=== PATIENT | female | born 1985 | race African-American/Black ===

== ENCOUNTER 2024-06-28 10:27 | Emergency (ER) | payer BC, SELFPAY ==
[2024-06-28 10:28] VITALS: BP 147/87; PULSE 85; RESP 16; TEMP 36.1; O2SAT 100
--- NOTE | 2024-06-28 10:30 | ED_ITS ---
HPI - Nausea/Vomiting/Diarrhea General Chief complaint: Nausea/Vomiting/Diarrhea Stated complaint: exposed to norovirus Time Seen by Provider: 06/28/24 10:29 Source: patient and RN notes reviewed Mode of arrival: EMS Limitations: no limitations History of Present Illness HPI Narrative: Patient presents with complaint of nausea and vomiting for the past 4-5 days. She works as a VEHICLE INSURANCE AGENT in a facility where she was told that she was exposed to norovirus. She states that after having a fibroid surgery she was told she may have leaky gut and was prescribed antibiotics but otherwise has no underlying GI issues and does not follow with a spinner concrete pipe. She states that her symptoms were bad enough that she did attempt to smoke marijuana to see if that would help. At baseline she is a daily user of marijuana. She states that initially she had some blood-streaked emesis although this has resolved. Her last bowel movement was today and she has been having diarrhea that is nonbloody.. She is about to start her next menstrual cycle. Denies other vaginal discharge. Denies any dysuria, or urinary urgency or frequency, or hematuria. She has been had subjective fevers and chills. She is also having epigastric abdominal pain. No medications taken at home but EMS did administer IV Zofran she states that this helped. Last oral intake was Sunday. She has been trying to drink protein shakes but unable to keep anything down. She had recently had weight loss preceding this and this caused her lisinopril dosage to change. She states that she has been diaphoretic. She has no appetite. She is thirsty. Related Data Allergies Allergy/AdvReac Type Severity Reaction Status Date / Time Penicillins Allergy Difficulty Verified 06/28/24 10:37 Breathing PMFSH Past Medical History Medical History Fibroid, uterine Surgical History Surgical History History of surgery of uterus for fibroids Social History Social History (Updated 06/28/24 @ 10:43 by Rakel Alejandra MD) Additional living arrangements comments: Resides in [place]; currently in this area on job assignment Occupation/Education: occupation Additional occupation/education comments: VEHICLE INSURANCE AGENT Exam 2 Narrative: GENERAL: Well-appearing, well-nourished, and in no acute distress. Odor of marijuana. HEAD: Normocephalic, atraumatic. EYES: Non injected, non icteric ENT: Nares clear, no rhinorrhea or epistaxis. Tacky mucous membranes. Tongue covered in white film. NECK: Supple. CHEST: Speaking in full sentences. No respiratory distress. HEART: Regular rate and rhythm. . ABDOMEN: Soft, nondistended. No tenderness to palpation. No rigidity or guarding. Not peritoneal. EXTREMITIES: Normal range of motion. No lower extremity edema. SKIN: Warm, dry, no rash. NEURO: No focal deficits. Alert and oriented x3. PSYCH: Normal mood and affect. Course Vital Signs Vital signs: Vital Signs Temperature 97 F L 06/28/24 10:28 Pulse Rate 85 06/28/24 10:28 Respiratory Rate 16 06/28/24 10:28 Blood Pressure 147/87 H 06/28/24 10:28 Pulse Oximetry 100 06/28/24 10:28 Oxygen Delivery Room Air 06/28/24 10:28 Temperature 98.8 F 06/28/24 13:47 Pulse Rate 65 06/28/24 11:07 Respiratory Rate 17 06/28/24 11:07 Blood Pressure 125/73 06/28/24 11:07 Pulse Oximetry 100 06/28/24 11:07 Oxygen Delivery Room Air 06/28/24 10:28 MDM - Nausea/Vomiting/Diarrhea MDM Narrative Medical decision making narrative: Patient presents with nausea, vomiting, and diarrhea. Symptoms for the past 4-5 days. Reportedly exposed to norovirus at work. She is a VEHICLE INSURANCE AGENT. In the emergency department she is afebrile with acceptable vital signs, mild hypertension. Patient notes that she is feeling slightly better after receiving IV Zofran from EMS. IV fluids ordered. Patient is mildly hypokalemic. P.o. supplementation ordered. Magnesium normal. Patient has some microscopic hematuria. She denies any dysuria, urgency, frequency, or gross hematuria. She does state that her menstrual period is due to begin. For this reason, presumption is that this represents started her menstrual cycle rather than infection and will defer antibiotics at this time given otherwise asymptomatic. Viral swab negative. Patient reassessed at 11:40 a.m.. She is sleeping, resting comfortably. She states she can not keep her eyes open and is tired however she states that her nausea is improved at this time. Has not vomited. Negative test. Patient reassessed multiple times and there is prolongation in being able to p.o. challenge given her degree of somnolence. She remains protecting her airway. She was given no opiate or benzodiazepine medication in the emergency department or by EMS. Thus, I do suspect that her fatigue may be driven by her symptoms over the past few days as well as her declared use of marijuana.. She does successfully p.o. challenge. Stable for discharge. Vital signs within normal limits. Advised on rest and supportive care and maintaining hydration. Provided prescription for short course of ondansetron. Differential Diagnosis Differential diagnosis: Likely traveler's diarrhea, food poisoning, gastroenteritis, clostridium difficile infection, drug-induced nausea and vomiting, dehydration and other (Cannabinoid hyperemesis syndrome; pancreatitis; biliary pathology) Lab Data Attestation: I reviewed the patient's lab results. Lab results narrative: CBC grossly unremarkable 06/28/24 10:43 06/28/24 10:43 Labs: Lab Results 06/28/24 06/28/24 06/28/24 Range/Units 10:43 10:56 11:00 WBC 5.3 (4.5-10.0) K/mm3 RBC 4.69 (4.2-5.4) M/mm3 Hgb 13.9 (12.0-15.0) g/dL Hct 43.0 (37.0-47.0) % MCV 91.7 (80-100) fl MCH 29.6 (26-34) pg MCHC 32.3 (32-36) g/dl RDW 15.5 H (11.5-14.5) % Plt Count 282 (150-375) k/mm3 MPV 10.2 (7.4-10.4) fl Immature Gran % (Auto) 0.2 (0-0.5) % Neut % (Auto) 77.6 H (45.5-73.1) % Lymph % (Auto) 18.6 (18.3-44.2) % [place] % (Auto) 2.4 L (2.6-8.5) % Eos % (Auto) 0.4 (0-4.4) % Baso % (Auto) 0.8 (0.2-1.2) % Lymph # (Auto) 0.99 (0.9-3.2) K/mm3 [place] # (Auto) 0.1 (0.1-0.6) K/mm3 Eos # (Auto) 0.0 (0-0.3) K/mm3 Baso # (Auto) 0.0 (0.0-0.1) K/mm3 Abs Immat Gran (auto) 0.01 (0.00-0.031) K/mm3 Absolute Neuts (auto) 4.1 (1.3-6.7) K/mm3 Absolute Nucleated RBC 0.000 (0.0-0.012) K/mm3 Nucleated RBC % 0.0 (0.0-0.2) % Sodium 139 (137-145) mmol/L Potassium 3.3 L (3.4-5.0) mmol/L Chloride 105 (98-107) mmol/L Carbon Dioxide 25 (22-30) mmol/L Anion Gap 9 (4-12) mmol/L BUN 9 (7-17) mg/dL Creatinine 0.84 (0.7-1.0) mg/dL Estim Creat Clear Calc Not Reportable Estimated GFR > 60 (59 - ) Glucose 112 H (65-110) mg/dL Calcium 9.3 (8.4-10.2) mg/dL Magnesium 2.1 (1.6-2.3) mg/dL Total Bilirubin 0.8 (0.2-1.3) mg/dL AST 20 (14-36) U/L ALT 20 (6-35) U/L Alkaline Phosphatase 76 (38-126) U/L Total Protein 8.0 (6.3-8.2) g/dL Albumin 4.5 (3.5-5.1) g/dL Lipase 106 (23-300) U/L Urine Color Dark yellow (Yellow) Urine Appearance Cloudy H (Clear) Urine pH 6.5 (5.0-9.0) Ur Specific [place] 1.027 (1.001-1.035) Urine Protein 2+ H (Negative) mg/dL Urine Glucose (UA) Negative (Negative) mg/dL Urine Ketones 2+ H (Negative) mg/dL Ur Blood (Man) 1+ H (Negative) Urine Nitrate Negative (Negative) Urine Bilirubin Negative (Negative) Urine Urobilinogen 1.0 (<2.0) mg/dL Leukocyte Esterase Rfl Negative (Negative) RYANNE/UL Urine RBC 11-20 H (0-2) /hpf Urine WBC 0-5 (0-3) /hpf Ur Squamous Epith Cells Occasional (Few) /hpf Urine Bacteria None seen /hpf Urine Casts 0-2 POC Urine HCG, Qual Negative (Negative) Influenza A (RT-PCR) Negative (Negative) Influenza B (RT-PCR) Negative (Negative) SARS-CoV-2 RNA (RT-PCR) Negative (Negative) Discharge Plan Discharge Clinical Impression: Gastroenteritis, Hypokalemia Patient Disposition: Home, Self-Care Condition: Stable Instructions: Antibiotic Form, Hypokalemia (ED), Gastroenteritis (ED) Additional Instructions: Rest and maintain your hydration. Your potassium was mildly low. We did supplement it here. You can gently sip water and, if desired, add pedialyte or Gatorade (does not have to be name brand). If you choose to use juice, dilute it as sometimes these contain a lot of sugar. Avoid milk as some viruses can cause a transient intolerance to milk. If and when you do have an appetite, start with bland food (think bananas, rice, applesauce, toast). Follow-up with primary care physician. If you do not have 1 in the area the name of the doctors listed below. Return to the emergency department with any new or worsening symptoms. Oral disintegrating tablets of ondansetron/Zofran have been prescribed if nausea and vomiting occur again. Patient Language: Turkmen Prescriptions: New ondansetron 4 mg tablet,disintegrating 4 mg PO Q8H PRN (Reason: nausea and vomiting) Qty: 7 0RF Follow-up/Referrals: PHYSICIAN NOT ON STAFF,NONSTAFF [Primary Care Provider] - Alfonso Vincent MD [Physician] - (Family practice/primary care physician) Stand Alone Forms: Work/School Release IP Time of Disposition: 13:37
[2024-06-28 10:49] LABS: Basophils Percent Auto 0.8 % (0.2-1.2); Eosinophils Percent Auto 0.4 % (0-4.4); Hemoglobin 13.9 g/dL (12.0-15.0); Immature Granulocyte Absolute 0.01 K/mm3 (0.00-0.031); Immature Granulocyte Percent A 0.2 % (0-0.5); Lymphocytes Absolute Auto 0.99 K/mm3 (0.9-3.2); Lymphocytes Percent Auto 18.6 % (18.3-44.2); Mean Corpuscular HGB Conc 32.3 g/dl (32-36); Mean Corpuscular Hemoglobin 29.6 pg (26-34); Mean Corpuscular Volume 91.7 fl (80-100); Mean Platelet Volume 10.2 fl (7.4-10.4); Monocytes Absolute Auto 0.1 K/mm3 (0.1-0.6); Monocytes Percent Auto 2.4 % (2.6-8.5); Neutrophils Absolute Auto 4.1 K/mm3 (1.3-6.7); Neutrophils Percent Auto 77.6 % (45.5-73.1); Platelet Count Result 282 k/mm3 (150-375); Red Blood Count 4.69 M/mm3 (4.2-5.4); Red Cell Distribution Width 15.5 % (11.5-14.5); White Blood Count 5.3 K/mm3 (4.5-10.0)
[2024-06-28 10:58] LABS: Alanine Aminotransferase 20 U/L (6-35); Albumin Level 4.5 g/dL (3.5-5.1); Alkaline Phosphatase 76 U/L (38-126); Anion Gap 9 mmol/L (4-12); Aspartate Amino Transferase 20 U/L (14-36); Bilirubin,Total 0.8 mg/dL (0.2-1.3); Blood Urea Nitrogen 9 mg/dL (7-17); Calcium 9.3 mg/dL (8.4-10.2); Carbon Dioxide 25 mmol/L (22-30); Chloride 105 mmol/L (98-107); Estimated Glomerular Filt Rate > 60; Glucose 112 mg/dL (65-110); Lipase 106 U/L (23-300); Magnesium 2.1 mg/dL (1.6-2.3); Potassium 3.3 mmol/L (3.4-5.0); Sodium 139 mmol/L (137-145)
[2024-06-28] MEDS: SODIUM CHLORIDE 0.9% IV 1,000 ML 999 ML IV CONT (11:00)
[2024-06-28 11:03] LABS: BEDSIDEPREGUCG Negative (Negative)
[2024-06-28 11:06] LABS: Add Urine Microscopic? YES; Appearance Urine Cloudy (Clear); Bacteria Urine None Seen /hpf; Bilirubin Urine Negative (Negative); Blood Urine 1+ (Negative); Color Urine Dark Yellow (Yellow); Glucose Urine UA Negative (Negative); Ketones Urine 2+ mg/dL (Negative); Leukocyte Esterase Ur Negative LEU/UL (Negative); Nitrate Urine Negative (Negative); Non Pathogenic Casts 0-2; Protein Urine 2+ mg/dL (Negative); Specific Grav Ur 1.027 (1.001-1.035); Squamous Epithelial Cell Urine Occasional /hpf (Few); WBC Urine 0-5 /hpf (0-3); pH Urine 6.5 (5.0-9.0)
[2024-06-28 11:07] VITALS: BP 125/73; PULSE 65; RESP 17; O2SAT 100
[2024-06-28 11:24] LABS: Influenza A QL RT-PCR Negative (Negative); Influenza B QL RT-PCR Negative (Negative); SARS-CoV-2 RNA PCR Negative (Negative)
[2024-06-28] MEDS: POTASSIUM BICARBONATE 25 MEQ TABEF PO (11:57)
--- NOTE | 2024-06-28 13:04 | PC.NURSE ---
patient provided with a drink to PO challenge. patient difficult to wake up and hasn't actually drank at this time
--- NOTE | 2024-06-28 13:35 | PC.NURSE ---
patient provided crackers and sprite at this time.
[2024-06-28 13:47] VITALS: TEMP 37.1
== END 2024-06-28 13:48 | disposition home or self-care (01) ==
PROVIDERS: Emergency Provider Student in an Organized Health Care Education/Training Program
DX: K52.9 Noninfective gastroenteritis and colitis, unspecified (principal); E87.6 Hypokalemia; Z20.822 Contact with and (suspected) exposure to COVID-19
CPT/HCPCS: 36415; 80053; 81001; 81025; 83690; 83735; 85025; 87636; 96360; 99283; A9270; J7030